=== PATIENT | female | born 1985 | race African-American/Black ===

== ENCOUNTER 2020-12-05 10:32 | Emergency (ER) | payer OTHER, SELFPAY ==
[2020-12-05 10:44] VITALS: BP 123/65; PULSE 99; RESP 20; TEMP 36.8; O2SAT 100
--- NOTE | 2020-12-05 10:45 | WPDEDEXPGENP ---
HPI - General Ped General Chief complaint: Upper Respiratory Infection Stated complaint: Abd pain, Chills, Lower back pain, Joint pain Time Seen by Provider: 12/05/20 10:45 Source: patient and RN notes reviewed History of Present Illness HPI narrative: Patient is a 35-year-old female who presents the urgent care with complaints of intermittent abdominal pains, chills, body aches and joint pain. Patient states that she has a history of rheumatoid arthritis and does have intermittent joint pains at times. Patient has been taking her medication as prescribed. Patient denies of any nausea, vomiting or diarrhea. States that she has had the Covid vaccine and denies of any recent exposures. Denies of any upper respiratory complaints. Patient has been taking Tylenol and ibuprofen. No acute distress noted. Patient is laughing and does not appear to be in any pain at this time. Patient aware of the plan of care. Some parts of this dictation were generated by voice recognition software and may contain typographical and/or grammatical inaccuracies. Related Data Home Medications Medication Instructions Recorded Confirmed azathioprine 50 mg PO TID 12/05/20 12/05/20 celecoxib 200 mg PO BID 12/05/20 12/05/20 duloxetine 60 mg PO DAILY 12/05/20 12/05/20 fluoxetine 10 mg PO BID 12/05/20 12/05/20 sumatriptan succinate 100 mg PO DAILY 12/05/20 12/05/20 tizanidine 4 mg PO DAILY 12/05/20 12/05/20 tramadol 50 mg PO Q4-6H PRN 12/05/20 12/05/20 Allergies Allergy/AdvReac Type Severity Reaction Status Date / Time shellfish derived Allergy Mild Rash Verified 12/05/20 10:55 Pediatric Review of Systems Review of Systems: CONSTITUTIONAL: Reports of chills EYES: Denies visual changes, redness, or discharge. ENT: Denies rhinorrhea, congestion, sore throat, or otalgia. CARDIOVASCULAR: Denies chest pain, palpitations, or edema. RESPIRATORY: Denies cough or dyspnea. GASTROINTESTINAL: Reports of intermittent abdominal pains without nausea, vomiting or diarrhea GENITOURINARY: Denies dysuria or hematuria. SKIN: Denies rash or itching. MUSCULOSKELETAL: Reports of acute on chronic joint pain and body aches NEUROLOGIC: Denies headache, numbness, or weakness. All other systems reviewed are negative, except as documented in HPI. PMFSH Comments At the time of my signature, I reviewed and agree with the nursing past medical, surgical, social, and family history. There is no relevant family history pertinent to the patient complaint. Pediatric Exam Narrative: Physical exam: GENERAL: This is a well-nourished, well-developed patient, in no apparent distress. HEAD: normocephalic, atraumatic. EYES: PERRL. Sclera clear/white. Vision is grossly intact. EARS: External ears normal, auditory canals clear and without drainage, TMs normal without perforation. Hearing grossly intact. NOSE: External nose normal with no obvious nasal discharge, nares without redness, no rhinorrhea. THROAT: Mucous membranes moist, posterior pharynx clear. Mild postnasal drainage NECK: Neck supple CARDIOVASCULAR: Regular rate and rhythm without murmurs, gallops, or rubs. RESPIRATORY: Clear to auscultation. Breath sounds equal bilaterally. No wheezes, rales, or rhonchi. Gastrointestinal: Mild left lower abdominal tenderness. No guarding. Mild diffuse discomfort on palpation. Bowel sounds within normal limits. SKIN: warm, intact with no suspicious lesions or rash, good texture and turgor. NEURO: awake, alert, and oriented to person, place and time. There were no obvious focal neurologic abnormalities. EXTREMITIES: No clubbing, cyanosis, or edema. Course Vital Signs Vital signs: Vital Signs Temperature 98.3 F 12/05/20 10:44 Pulse Rate 99 12/05/20 10:44 Respiratory Rate 20 12/05/20 10:44 Blood Pressure 123/65 12/05/20 10:44 Pulse Oximetry 100 12/05/20 10:44 Temperature 98.3 F 12/05/20 10:44 Pulse Rate 99 12/05/20 10:44 Respiratory Rate 20 12/05/20 10:44 Blood
== END 2020-12-05 11:40 | disposition home or self-care (01) ==
PROVIDERS: Emergency Provider Nurse Practitioner Family; PCP Internal Medicine
DX: N39.0 Urinary tract infection, site not specified (principal); M06.9 Rheumatoid arthritis, unspecified
CPT/HCPCS: 81003; 87077; 87086; 87088; 87186; 99213; G0463